=== PATIENT | male | born 1985 | race Asian ===

== ENCOUNTER → 2017-04-27 | Outpatient (CLI) | payer OTHER ==
[~2017-04-27] VITALS: Ht 182.2 cm; Wt 97.5 kg
[2017-04-27 11:50] VITALS: BP 115/81; PULSE 83; Ht 182.2 cm; Wt 97.5 kg
== END | disposition home or self-care (01) ==
LOC: C.NEUR 10:28
PROVIDERS: ATTEND Internal Medicine Pulmonary Disease
DX: G47.33 Obstructive sleep apnea (adult) (pediatric) (principal)